=== PATIENT | female | born 1955 | race Caucasian/White ===

== ENCOUNTER 2017-04-16 12:27 | Day surgery (SDC) | payer BC, OTHER ==
[~2017-04-16] VITALS: Ht 157.5 cm; Wt 63.6 kg
[~2017-04-16 12:27] MED LIST: ASPI-650 PO; METF500T4 PO; OMEP20CA16 PO; SIMV20TA2 PO
[2017-04-16 13:10] VITALS: Ht 157.5 cm; Wt 63.6 kg
[2017-04-16] MEDS ORDERED: CHOL100062 PO (13:15)
[2017-04-16] MEDS ORDERED: NAPR-688 PO (13:15)
--- NOTE | 2017-04-16 15:57 | OPPN ---
Date/Time of Note Date/Time of Note DATE: 04/16/17 TIME: 15:50 Proc Note GI Procedure Date 04/16/17 Indication: other (Unexplained diarrhea) Pre-procedure Diagnosis Unexplained diarrhea Post-procedure Diagnosis Impression: Normal colonic mucosa to cecum. Random biopsies obtained to rule out microscopic, lymphocytic or collagenous colitis. Normal terminal ileum. Moderate-sized internal hemorrhoids. Plan: Continue present regimen Review pathology as soon as available. Annual Hemoccult stool testing Screening colonoscopy in 10 years . Procedure Performed: Other (Anoscopy with biopsies) Surgeon PHILIP ANNE MD [employer] Work[employer] Apprentice none Anesthesia Type: moderate sedation (Versed 6 mg/fentanyl 75 mcg) Tourniquet Time none EBL none Transfusion required none Biopsy 1: Right side of the colon/Rule out microscopic colitis Biopsy 2: Left side of the colon/rule out microscopic colitis Grafts/Implants none Tubes/Drains none Complication(s) none Disposition: home Procedure Description After informed consent, with the patient/relatives understanding the procedure, its indications and potential risks and complications, including but not limited to: Allergic reaction, bleeding, perforation, infection, and after all pertinent questions were answered to the patient's satisfaction, the patient/ relatives signed the witnessed informed consent. Following this, premedication was administered slowly IV push under careful cardiovascular and respiratory monitoring with pulse [employer], automatic blood pressure, and surveillance system monitor. Once the sedative effect was achieved, the patient was placed in the left lateral decubitus position, digital rectal examination was performed. The colonoscope was then introduced and advanced under visual control throughout all segments of the colon including: []the rectum, sigmoid, descending colon, splenic flexure, transverse colon, hepatic flexure, ascending colon and finally reaching the cecum which was clearly identified by transillumination, finger indentation and the ileocecal valve. Terminal ileum was entered and examined. Careful examination of the mucosa of the lower gastrointestinal tract both on insertion as well as withdrawal of the instrument disclosed the following findings: PREPARATION QUALITY: [Adequate], RECTAL EXAM: The anorectal area was visualized examined and digital rectal examination performed with the following findings: No evidence of perirectal disease, no masses. COLONIC MUCOSA: The mucosa of all segments of the colon was carefully examined and showed the following findings: the examined colonic and terminal ileum mucosa appears within normal limits. There is no evidence of inflammatory changes, diverticular formation, polyps or other neoplasms, vascular malformation, or any other abnormality. Random biopsies were obtained of the right colon and left colon. Rule out microscopic , lymphocytic or collagenous colitis. Moderate-sized internal hemorrhoids are present. The instrument was then withdrawn, the patient tolerated the procedure well and was transferred out of the Endoscopy Suite awake and in good condition to continue recovery under observation. Copies To: CC: PHILIP ANNE MD, MORDO MD Apr 16, 2017 15:57
[2017-04-16] MEDS ORDERED: MIDAZOLAM 1 MG/ML 2 ML INJ ONE ×3 (16:12)
[2017-04-16] MEDS ORDERED: FENTAnyl 50 MCG/ML VIAL ONE (16:12)
[2017-04-16 16:20] VITALS: BP 105/64; RESP 14
== END 2017-04-16 18:11 | disposition home or self-care (01) ==
LOC: GIL 12:27
PROVIDERS: ATTEND Internal Medicine Gastroenterology
DX: K52.9 Noninfective gastroenteritis and colitis, unspecified (principal); E11.9 Type 2 diabetes mellitus without complications
CPT/HCPCS: 45380; 82962; 88305; J2250; J3010; Z7610

== ENCOUNTER 2019-03-12 23:44 | Observation (INO) | payer MEDICAID, OTHER ==
[~2019-03-12] VITALS: Ht 152.4 cm; Wt 68.4 kg
[~2019-03-12 23:44] MED LIST changes: +CHOL100062 PO; +MELO7.5O PO; +METF-849 PO; -METF500T4 PO; +NAPR-688 PO
[2019-03-13] MEDS ORDERED: SOD CHLORIDE 0.9% 1,000 ML IV STA (00:02)
[2019-03-13] MEDS ORDERED: morphine 4 MG/ML VIAL IV STA (00:21)
[2019-03-13] MEDS ORDERED: ASPIRIN 81 MG TAB PO ONE (03:00)
[2019-03-13] MEDS ORDERED: ONDANSETRON 4 MG INJ IV PRN (03:00)
[2019-03-13] MEDS ORDERED: ACETAMINOPHEN 325 MG TAB PO PRN ×2 (03:00→04:00)
[2019-03-13] MEDS ORDERED: NACL 0.9% 3 ML SYG IV SCH (04:00)
[2019-03-13] MEDS ORDERED: morphine 2 MG INJ IV PRN (04:00)
[2019-03-13] MEDS ORDERED: DOCUSATE SODIUM 100 MG CAP PO PRN (04:00)
[2019-03-13] MEDS ORDERED: BISACODYL (EC) 5 MG TAB PO PRN (04:00)
[2019-03-13] MEDS ORDERED: NITROGLYCERIN (SL) 0.4 MG TAB SL PRN (04:00)
[2019-03-13 04:30] VITALS: BP 151/70; RESP 20
[2019-03-13 04:39] VITALS: Ht 152.4 cm; Wt 68.4 kg
[2019-03-13] MEDS ORDERED: ENALAPRILAT 1.25 MG INJ IV PRN (07:00)
[2019-03-13 07:13] VITALS: BP 148/72; PULSE 103; RESP 20
[2019-03-13] MEDS ORDERED: ASPIRIN 81 MG TAB PO SCH ×2 (09:00)
[2019-03-13 11:54] VITALS: BP 134/68; PULSE 90; RESP 20
[2019-03-13] MEDS ORDERED: ATORVASTATIN 10 MG TAB PO SCH (21:00)
[2019-03-14] MEDS ORDERED: PANTOPRAZOLE (EC) 40 MG TAB PO SCH (09:00)
== END 2019-03-13 15:45 | disposition home or self-care (01) ==
LOC: E/R 23:44 → 6WM 03-13 02:34
PROVIDERS: ADMIT Family Medicine; ATTEND Internal Medicine
DX: R06.09 Other forms of dyspnea (principal); E11.9 Type 2 diabetes mellitus without complications; E78.00 Pure hypercholesterolemia, unspecified; E66.9 Obesity, unspecified; Z68.29 Body mass index [BMI] 29.0-29.9, adult; E78.5 Hyperlipidemia, unspecified; K21.9 Gastro-esophageal reflux disease without esophagitis; R03.0 Elevated blood-pressure reading, without diagnosis of hypertension; Z79.82 Long term (current) use of aspirin; Z79.84 Long term (current) use of oral hypoglycemic drugs
CPT/HCPCS: 36415; 71045; 80048; 80053; 80061; 81003; 82550; 82553; 82962; 83036; 83690; 83735; 84443; 84484; 85025; 93005; 93306; 96374; J2270; J7030; Z7500; Z7502; Z7610; G0378